=== PATIENT | female | born 1935 | race Caucasian/White ===

== ENCOUNTER 2017-01-26 11:56 | Inpatient (IN) | payer MEDICARE ==
[~2017-01-26] VITALS: Ht 167.6 cm; Wt 53.8 kg
--- NOTE | ~2017-01-26 | ECH ---
Transthoracic Echocardiography Report (TTE) Demographics Patient Name MICHELLE SANTOS Date of Study 01/27/2017 Patient Number [id number] Visit Number [id number] Date of 1935 Room Number 314 Accession Number [id number] Gender Female Age 81 year(s) Referring Zhen Lazar Housekeeping Aide Kayleigh Dennison [facility] Physician MD Lance Lazar MD Physician Interpreting Karie Tubbs Chief Information Officer Physician Supervising Ordering Physician Zhen Lazar MD/[employer] Nurse Stress Solo Truck Driver Conclusions Contractility Score Summary Normal Left Ventricular contractility was noted. Summary Technically good exam. The estimated left ventricular ejection fraction is 45%. Normal right ventricle structure with decreased function. The left atrium is severely dilated by LA volume index measurement. Moderate mitral regurgitation by color Doppler. There is mild aortic stenosis by the Continuity Equation. The peak velocity is 2.6 m/s, the mean gradient is 13 mmHg, and the valve area based on the continuity equation is 1.4 cm2, stroke volume index is 36 ml/m2. Peak velocity obtained in apical view. There is mild aortic regurgitation by color Doppler. Moderate tricuspid regurgitation by color Doppler. There is mild pulmonary hypertension. The pulmonary pressure (RVSP) is 37 mmHg. Recommendation The patient will be given the results of this study by the physician who ordered the exam. Procedure Type of Study TTE procedure:Echo Complete SF. Procedure Date Date: 01/27/2017 Start: 10:26 AM Technical Quality: Good visualization Indications:Atrial fibrillation and Congestive heart failure. Appropriate Use Criteria: 9 Height: 66 inches Weight: 121 pounds BSA: 1.62 m Rhythm: NSR HR: 73 bpm BP: 78/58 mmHg M-Mode/2D Measurements LV Diastolic Dimension: 4.74 cm LV Systolic Dimension: 3.6 cm LV Septum Diastolic: 0.76 cm LV PW Diastolic: 0.76 cm AO Root Dimension: 2.35 cm Cardiac Output: 4.24 l/min LA Dimension: 3.88 cm Cardiac Index: 2.62 l/min*m RV Diastolic Dimension: 3.41 cm LA volume index: 56 ml/m LVOT: 2.04 cm LVOT VTI: 17.8 cm RV Base: 3.5 cm LV Stroke volume: 58.15 ml RV Mid: 2.2 cm LV Stroke volume index: 35.9 ml/m TAPSE: 0.9 cm TDI-S': 8 cm/s Doppler Measurements AV Peak Velocity: 2.6 m/s MV Peak E-Wave: 1.33 m/s AV Peak Gradient: 27.04 mmHg AV Mean Gradient: 13.04 mmHg MV P1/2t: 71.4 msec LVOT Peak Velocity: 0.77 m/s AV Area (Continuity):1.37 cm AV P1/2t: 569.3 msec MV Area (PHT): 3.08 cm TR Velocity:2.92 m/s PV Peak Velocity: 0.66 m/s TR Gradient:34.11 mmHg PV Peak Gradient: 1.72 mmHg Estimated RAP:3 mmHg Estimated PASP: 37.11 mmHg Estimated RVSP: 37 mmHg E' Septal Velocity: 0.12 m/s E' Lateral Velocity: 0.1 m/s RA Area: 14.95 cm Findings Left Ventricle The left ventricle is normal in size . Diastolic function indeterminate due to patient's arrhythmia. Right Ventricle Normal right ventricle structure with decreased function. Left Atrium The left atrium is severely dilated by LA volume index measurement. Right Atrium Normal right atrial size. Mitral Valve Normal mitral valve structure and function. Moderate mitral regurgitation by color Doppler. Aortic Valve There is mild aortic stenosis by the Continuity Equation. The peak velocity is 2.6 m/s, the mean gradient is 13 mmHg, and the valve area based on the continuity equation is 1.4 cm2, stroke volume index is 36 ml/m2. Peak velocity obtained in apical view. There is mild aortic regurgitation by color Doppler. Tricuspid Valve Normal tricuspid valve structure and function. Moderate tricuspid regurgitation by color Doppler. There is mild pulmonary hypertension. The pulmonary pressure (RVSP) is 37 mmHg. Pulmonic Valve Normal pulmonic valve structure and function. Trivial pulmonic valve regurgitation by color Doppler. Pericardial Effusion No evidence of pericardial effusion. Miscellaneous Visualized portions of the aortic root and ascending aorta appear normal in size. Pleural Effusion No evidence of pleural effusion. Contractility Score LV regional wall motion:(0-Non visualized 1-Normal 2-Hypokinesis 3-Akinesis 4-Dyskinesis 5-Aneurysm) Signature
--- NOTE | ~2017-01-26 | DS ---
ADMIT: 01/26/2017 RM/LOC: [facility] MR#: [id number] [address] [place], [place] [address] MICHELLE SANTOS [address] [place] [address] General Discharge Summary SEX: F AGE: 81 : 1935 ADMISSION DATE: 01/26/2017 DISCHARGE DATE: 02/02/2017 SERVICE: Neurosurgery. REASON FOR ADMISSION: 1. Fall. 2. Left-sided subdural hematoma. 3. Metabolic disturbances. 4. Renal insufficiency. 5. Atrial fibrillation with rapid ventricular response. CONSULTS: 1. Dr. Prieto with Nephrology. 2. Dr. Fontaine with Cardiology. 3. Dr. Nelson with [facility]. PROCEDURE: IVC filter placement. HOSPITAL COURSE: Ms. Santos is a very pleasant, 81-year-old female with a known history of dementia. She is from [place], [place] and is here visiting with family. This morning, she was found by her family after she had fallen. They do live in [place]. There was a question of whether she had decreased mental status and some right-sided weakness. An EMS was called and she was taken to the [facility] emergency room for evaluation. A CT scan of her head was obtained and revealed a left-sided subdural hematoma and she was transferred to [facility] for neurosurgical care and higher level of care. She also had edema and erythema to her lower extremity. She was being treated for cellulitis for this and was on doxycycline. She was admitted to the intensive care unit for close monitoring and care. Nephrology was consulted for her elevated BUN and creatinine. [facility] was consulted for co-management of her comorbidities. She was evaluated by Speech Therapy and Physical Therapy and tolerated this well. She went into atrial fibrillation with a rapid ventricular response and Cardiology was consulted. An ultrasound of her right lower leg was obtained and was positive for DVT. Hospital day #2, she was awake and alert. She was pleasantly confused. Her vital signs were stable, she was moving all extremities x4. An IVC filter was placed and she tolerated this well. She continued to work with Physical Therapy and Occupational Therapy. Hospital day #3, Cardiology was adjusting her medications for her atrial fibrillation. She was awake and alert but confused, she was afebrile and vital signs were stable and she was moving all extremities x4. She denied headaches. Her renal insufficiency was stable. Hospital day #4, she was transferred out of the intensive care unit to the Med/Surg status. She continued to work with Physical Therapy, Occupational Therapy, and Speech Therapy. She was alert but forgetful. She would follow commands. Social Work was working on placement. Hospital day #5, she was alert, she would follow commands, and was moving all extremities. She refused therapy but was neurologically stable. Hospital day #6, she was awake and alert but confused. She was afebrile and her vital ADMIT: 01/26/2017 RM/LOC: [facility] MR#: [id number] [address] [place] [id number] MICHELLE SANTOS [address] [place] [address] General Discharge Summary SEX: F AGE: 81 : 1935 signs were stable, she was moving all extremities x4. She denied headaches. Social Work continued to work on discharge placement. Hospital day #7, she remained neurologically stable. She remained awake and alert and disoriented. She was moving all extremities x4, her vital signs were stable. Hospital day #8, she was awake and alert. She was afebrile and her heart rate did drop to 39, she did complain of some nausea, and her Lopressor was discontinued and her digoxin held. She was moving all extremities x4. She was ambulating, defecating, and urinating per her norm and was discharged home. DISCHARGE CONDITION: Good. MEDICATIONS: 1. Colace 100 mg p.o. b.i.d. 2. Lanoxin 0.0625 mg p.o. daily. 3. Lipitor 10 mg daily. 4. Milk of magnesia 10 mL daily p.r.n. 5. Paxil 20 mg daily. 6. Pepcid 20 mg b.i.d. 7. Senokot one tab b.i.d. 8. Vibramycin 100 mg b.i.d. x2 more days, then discontinue. 9. Hydrocodone 5/325, one p.o. q.8 hours p.r.n. 10.Tylenol 650 mg p.o. q.4 hours p.r.n. 11.Dulcolax suppository 10 mg daily p.r.n. 12.Zofran 4 mg p.o. q.4 hours p.r.n. DISCHARGE INSTRUCTIONS: Per Dr. Lucas: She can have a diet per Speech Therapy recommendations. She is a fall risk and should utilize fall precautions. She is to continue with physical therapy and occupational therapy and speech therapy. She will call with any questions or concerns including neurological worsening, signs or symptoms of infection, or any other issues. FOLLOWUP: She will follow up with Dr. Lucas in clinic in 1 month. She will follow up with Dr. Minor on February 15 at 1:30 p.m. DISPOSITION: She was discharged home with family. Total [id number] time for the discharge planning, care coordination was 30 minutes. Gretel Costa APRN / Jone Lucas MD / may JOB #: [id number] CC: Jone Lucas MD, Attending Physician Juan Minor MD, Family Physician
--- NOTE | 2017-01-28 09:16 | HP ---
ADMIT: 01/26/2017 RM/LOC: 314 [facility] MR#: [id number] [address] [facility] [address] [place], [place] [address] MICHELLE SANTOS [address] [place] [address] History and Physical SEX: F AGE: 81 : 1935 DATE OF SERVICE: REASON FOR ADMISSION: Intracranial hemorrhage. HISTORY OF PRESENT ILLNESS: Ms. Santos is a very pleasant woman here visiting with family from [place]. She had a fall few days ago. She has been a little bit forgetful as well. She was brought into the ER today with some confusion and was found to have some metabolic disturbances as well as a small subdural hematoma, and a request for transfer was made. PAST MEDICAL HISTORY: Some type of rash and possible infection in the right leg. Multiple areas of ecchymosis from possible falls. Other medical history is not really known. SOCIAL HISTORY: She does not smoke or utilize drugs of abuse. FAMILY HISTORY: Unknown, and she is not a great historian to be able to get that history from. HOME MEDICATIONS: 1. [place]. 2. [place]. 3. Lipitor. 4. Paxil. 5. Doxycycline. 6. Furosemide. PHYSICAL EXAMINATION: VITAL SIGNS: 96 beats, 96% on room air, 116/77, 12 respirations. GENERAL: She is an otherwise age appropriate appearing 81-year-old woman. HEENT: No scleral icterus. Clear oropharynx. CHEST: Normal respiratory excursion. ABDOMEN: Nontender. EXTREMITIES: Multiple areas of aged ecchymoses. NEUROLOGICAL EXAMINATION: MENTAL STATUS: She is awake and pleasantly alert, although confused. She does ultimately get the right year after multiple wrong attempts. She does not know where she is at. CRANIAL NERVES: Cranial nerves II through XII are individually tested and found to be intact without deficit. MOTOR: Motor exam appears to reveal 5/5 strength release. No localizable neurological deficits. DEEP TENDON REFLEXES: Are 2/4 in the upper and lower extremities. ADMIT: 01/26/2017 RM/LOC: 314 [facility] MR#: [id number] [address] [address] MICHELLE SANTOS [address] [place] [address] History and Physical SEX: F AGE: 81 : 1935 SENSATION: Intact to light touch in upper and lower extremities. CEREBELLAR: Not tested as she does not follow commands that well. GAIT: Not testable. ASSESSMENT AND PLAN: Ms. Santos is a very pleasant woman with a small left-sided subdural hematoma. I do not think this is going to end up being operative. She has had some renal insufficiency of some unknown nature, I do not know if this is chronic or acute, we will have Nephrology see her. Will need an Internal Medicine consult for evaluation for medical comorbidities as well. Hopefully, we can get her squared away over the next couple of days and get her back to her family although I am not totally sure that is going to be possible. Jone Lucas MD/ may JOB #: [id number] CC: Jone Lucas, Attending Physician Juan Minor, Family Physician
--- NOTE | 2017-01-30 21:51 | CO ---
ADMIT: 01/26/2017 RM/LOC: 314 [facility] MR#: [id number] [address] [place], [place] [address] MICHELLE SANTOS [address] [facility] [address] Consultation SEX: F AGE: 81 : 1935 Addendum: 01/28/2017 0540 djs DATE OF CONSULTATION: 01/27/2017 ATTENDING PHYSICIAN: Jone Lucas CONSULTING PHYSICIAN: Kelsey Nelson MD CHIEF COMPLAINT: Comorbid medical conditions. HISTORY OF PRESENT ILLNESS: Michelle Santos is an 81-year-old white female with obvious dementia, who had fallen that sounds like a few times in the last few days. She then started behaving oddly. She was taken to the emergency room where she was noted to have a subdural hematoma. She was subsequently transferred to [facility] for neurosurgical care. She denies complaints at this time regarding her subdural. She does have right shoulder discomfort. She is a very poor historian. There are no medical records available. She is currently hypotensive, but tolerating it well which makes me believe it probably is chronic. She also has atrial fibrillation with rapid ventricular response noted. Again asymptomatic. PAST MEDICAL HISTORY: Obtained from her medical record we have here include: 1. Cellulitis of the right lower extremity that has been treated with doxycycline as an outpatient. 2. Atrial fibrillation with rapid ventricular response - unknown onset date. 3. Subdural hematoma. 4. Dementia. 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 6. Renal insufficiency. 7. Hypomagnesium. 8. Hypokalemia. 9. Anemia. 10.History of CVA in 2002. 11.Ovarian cancer, status post radiation therapy with resulting complications involving her colon. 12.Breast cancer history. [employer] JOB #[id number]: MEDICATIONS: 1. Colace 100 mg daily. 2. [place] 5/325 every eight p.r.n. 3. Potassium 10 mEq daily. 4. Lipitor 20 daily. 5. Paxil 20 mg 1/2 daily. 6. Doxycycline 100 b.i.d. 7. Lasix 40 mg daily. 8. Prevacid 30 mg daily. ADMIT: 01/26/2017 RM/LOC: 314 [facility] MR#: [id number] [address] [facility] [address] [place], [place] [address] MICHELLE SANTOS [address] [place] [address] Consultation SEX: F AGE: 81 : 1935 ALLERGIES: NONE AVAILABLE. SOCIAL HISTORY: Nonsmoker, occasional alcohol. Retired from [employer] and [employer]. FAMILY HISTORY: Unable to recall. REVIEW OF SYSTEMS: Right shoulder pain. No shortness of breath at this time. PHYSICAL EXAMINATION: VITAL SIGNS: Blood pressure 92/57, pulse 97, temp 95, respirations 14. GENERAL: This is a thin white female, who is in no distress. SKIN: Warm and dry. There is some bruising in the right chest area. Right leg is a little erythematous and slightly warm to the touch on the right dorsum of the foot with clear evidence of cellulitis that is starting to improve. It looks as though there was some previous edema that has improved. Right leg is 3+ edema, left is 1+. HEENT: Poor dentition. Mucous membranes are dry. NECK: Supple. LUNGS: Clear. CARDIOVASCULAR: Irregularly irregular and tachycardic. ABDOMEN: Soft. /RECTAL: Deferred. EXTREMITIES: With edema as above with the right 3+, left 1+. LABORATORY AND X-RAY DATA: Potassium 3.5, BUN and creatinine 48/2.8, magnesium 1. IMPRESSION: 1. Subdural hematoma. 2. Atrial fibrillation with rapid ventricular response. 3. Hypotension. 4. Hypokalemia. 5. Hypomagnesemia. 6. Cellulitis, right leg. 7. Lower extremity edema. 8. Renal insufficiency. DISCUSSION: Not sure what her renal function is. We do not know baseline. We will gently hydrate. We will also try and slow her heart rate down. Need to get some old records. PLAN: See chart. ADMIT: 01/26/2017 RM/LOC: 314 [facility] MR#: [id number] [address] [address] MICHELLE SANTOS [address] [place] [address] Consultation SEX: F AGE: 81 : 1935 Kelsey Nelson MD/ may JOB #: [id number] CC: Jone Lucas, Attending Physician Juan Minor, Family Physician MD Juan Kapadia MD Amarinder Garcha, MD Bernard Ormsby, MD [facility] . [facility] Addendum: 01/28/2017 0540 je
--- NOTE | 2017-01-31 07:42 | CO ---
ADMIT: 01/26/2017 RM/LOC: 314 [facility] MR#: [id number] [address] [place], [place] [address] MICHELLE SANTOS [address] [place] [address] Consultation SEX: F AGE: 81 : 1935 Corrected: 01/27/2017 0930 karens ATTENDING PHYSICIAN: Jone Lucas CONSULTING PHYSICIAN: Stephanie Prieto MD REASON FOR CONSULTATION: Renal insufficiency. HISTORY OF PRESENT ILLNESS: Ms. Santos is a very nice 81-year-old, who has a history of dementia, who was transferred here from [place] after having an apparent fall. She was found by her family members on the floor. She was further evaluated in the emergency room there and was found to have a white count of 7.9, hemoglobin 11.3, platelet count 124,000, blood sugar 109. UA was negative. Sodium of 139, potassium 2.9, BUN and creatinine of 47 and 2.9, CO2 of 18.9. UA was negative. Chest x-ray showed chronic bronchial thickening, prominent heart. CT of her cervical spine showed multiple degenerative disease at multiple levels. CT of brain showed a 6 mm subdural hematoma, old occipital pole infarct. EKG showed atrial fib. She was transferred to [facility] for Neurosurgery evaluation. We were asked to see to follow from Nephrology standpoint for elevated creatinine. She is unable to give a history. SOCIAL HISTORY: She has recently moved from [place]. FAMILY HISTORY: Noncontributory, unable to find. PAST MEDICAL HISTORY: Unable to access if she has any evidence of what her prior kidney function was. PHYSICAL EXAM: VITAL SIGNS: Her blood pressure after receiving a dose of Lopressor was 81/60. GENERAL: She is alert, pleasant, confused; bruising on anterior chest, arms. Urine output 400 mL in the Martin catheter. EXTREMITIES: Right lower extremity is edematous. ASSESSMENT: Admission of an elderly white female with renal insufficiency. We will get further medical records and find out what her baseline creatinine ADMIT: 01/26/2017 RM/LOC: 314 [facility] MR#: [id number] [address] [address] MICHELLE SANTOS [address] [place] [address] Consultation SEX: F AGE: 81 : 1935 is. Hypomagnesium, hypokalemia replaced. Anemia, dementia, atrial fibrillation with rapid ventricular rate; fall with decreased level of consciousness which has improved dramatically. Evidence of a small left subdural hematoma. 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 We will continue to follow closely. Dr. Forman will see her in the morning. We at this time will repeat her BMP, magnesium, and phosphorus as she received potassium and magnesium in [place]. An ultrasound of her kidney, bladder, ureters; reassess labs in the morning, get a urine sodium as well as she has edema of her right lower extremity. We will get an ultrasound to rule out deep venous thrombosis. Stephanie Prieto MD/ may JOB #: [id number] CC: Jone Lucas, Attending Physician Juan Minor, Family Physician Corrected: 01/27/2017 0930 je
--- NOTE | 2017-01-31 14:23 | CO ---
ADMIT: 01/26/2017 RM/LOC: 314 [facility] MR#: [id number] [address] [facility] [address] [place], [place] [id number] MICHELLE SANTOS [address] [place] [address] Consultation SEX: F AGE: 81 : 1935 DATE OF CONSULTATION: 01/26/2017 ATTENDING PHYSICIAN: Jone Lucas CONSULTING PHYSICIAN: Arvind Fontaine MD REASON FOR CONSULT: Atrial fibrillation. HISTORY OF PRESENT ILLNESS: Michelle is an 81-year-old lady with an obvious dementia. She says that she is here visiting family from her home of [place], [place]. She has an underlying dementia and the history is extremely difficult and I do not know how accurate it is. Regardless, she apparently was found by her family early this morning after she had fallen. They live in [place]. There were some question of decreased mental status. The [place] [facility] was called. She was taken to the emergency room. She was in atrial fibrillation when they arrive. She was not overly tachycardic. Further evaluation revealed a small left-sided subdural hematoma and she was transferred here to [place]. This afternoon, she has become somewhat tachycardic. When I asked her, she has no palpitations. She denies shortness of breath, lightheadedness, dizziness, and no chest discomfort. She says she has been told she has an irregular heart rhythm and she thinks that the term atrial fibrillation is recognizable but she is clearly not aware of her significant past medical history. I was asked to see her at the request of Dr. Lucas for her atrial fibrillation and further treatment. MEDICATIONS: Per the medical record, she is on: 1. Orcas 5/325 every 8 hours as needed for pain. 2. Klor-Con 10 mEq daily. 3. Lipitor 20 daily. 4. Paxil 20 daily. 5. Doxycycline 100 two times a day. 6. Lasix 40 every morning. ALLERGIES: THERE ARE NO KNOWN MEDICAL ALLERGIES. PAST MEDICAL HISTORY: She does have a colostomy and there is a mentioned history of prior colon cancer and history of right-sided ischemic CVA. She has known dementia. Otherwise, rest of her past medical history is unknown. SOCIAL HISTORY: Apparently, she has recently moved and is living with family here in the [facility], [place]. She denies smoking or significant alcohol use. She says she is . FAMILY HISTORY: Reviewed and noncontributory. I am not sure if it is even accurate. REVIEW OF SYSTEMS: Unobtainable. She offers no complaints to me this afternoon. ADMIT: 01/26/2017 RM/LOC: 314 [facility] MR#: [id number] [address] [id number] MICHELLE SANTOS [address] [place] [address] Consultation SEX: F AGE: 81 : 1935 PHYSICAL EXAMINATION: VITAL SIGNS: Her blood pressure 78/53, the mean is 62; her pulse is currently 100 after given 5 mg of Lopressor, it was 150 when I arrived to the floor; respirations are 18; she is afebrile. GENERAL: She is frail, elderly-appearing woman. She is not fully oriented. She appears in no acute distress. There is obvious bruising across her thorax. She is also pale. SKIN: Warm. There is decent capillary refill. No rashes. There is bruising noted over arms and her thorax. EYES: Sclerae clear. No xanthelasmas. ENT: Oral mucosa is pink and moist. No jugular venous distention or carotid bruits. HEART: Markedly tachycardic and slightly irregular. There is a soft systolic murmur at the upper sternal borders but I do not think it radiates to the carotids. CHEST: She has [id number] kyphosis. Otherwise, respirations are even and unlabored. Lungs are clear to auscultation. Good respiratory effort. ABDOMEN: There is a colostomy on the left or an ostomy on the left. Nontender. Bowel sounds are active. No masses are appreciated. Otherwise, soft and nontender. EXTREMITIES: There is marked size differential and edema consistent with lymphedema. PSYCH: She is clearly not oriented. She is cooperative. MUSCULOSKELETAL: Positive for kyphosis and changes of osteoarthritis. LABORATORY: From Michelle Rosario: Hemoglobin is 11.3, white count is 7.9, platelet count 124,000. Her BUN is 47 with creatinine of 2.9. AST and ALT were normal. Potassium is 2.9. Cardiac enzymes and TSH were all checked, but I do not have the results. Chest x-ray reported borderline hyperinflation, mild cardiomegaly. CT of the spine showed no fracture. CT of the head showed an old right occipital 2 cm infarct and a small left subdural hematoma. IMPRESSION: 1. Atrial fibrillation with rapid ventricular response. 2. Small left subdural hematoma. 3. Dementia. 4. History of previous ischemic right occipital infarct. 5. Dementia. 6. Recent fall. 7. Colostomy. 8. Elevated creatinine. RECOMMENDATIONS: Unfortunately, I really have minimal information regarding ADMIT: 01/26/2017 RM/LOC: 314 [facility] MR#: [id number] [address] [place] [id number] MICHELLE SANTOS [address] [place] [address] Consultation SEX: F AGE: 81 : 1935 her medical history. I am not clear if this atrial fibrillation has been longstanding or is a new diagnosis for her. With her previous history of stroke and not on anticoagulation, I would have suspected she be on anticoagulation but is not listed on her active medical list. Clearly, we are not going to start anticoagulation at this point, after her fall and subdural hematoma. There is no doubt in my mind she is at significant risk for recurrent falls. We will strive for rate control initially. I will try IV Lopressor and add continuous IV Cardizem if needed to control her heart rate. Further workup reviewing her TSH, we need to review her medical records, we will plan on doing an echo tomorrow to evaluate her LV and valvular function. Arvind Fontaine MD/ may JOB #: [id number] CC: Jone Lucas, Attending Physician Juan Minor, Family Physician
[2017-02-03] MEDS ORDERED: COLACE-DPS100 MG PO (18:00)
[2017-02-03] MEDS ORDERED: LANOXIN62.5 MCG PO (18:01)
[2017-02-03] MEDS ORDERED: LIPITOR DPS10 MG PO (18:01)
[2017-02-03] MEDS ORDERED: PAXIL DPS20 MG PO (18:01)
[2017-02-03] MEDS ORDERED: NORCO 5-325 TA1 EACH PO (18:02)
[2017-02-03] MEDS ORDERED: MILK OF MAGNESI10 ML PO (18:02)
[2017-02-03] MEDS ORDERED: PEPCID DPS20 MG PO (18:02)
[2017-02-03] MEDS ORDERED: VIBRAMYCIN-DPS100 M2 PO (18:02)
[2017-02-03] MEDS ORDERED: ZOFRAN4 MG PO (18:03)
[2017-02-03] MEDS ORDERED: DULCOLAX-DPS10 MG PR (18:03)
[2017-02-03] MEDS ORDERED: SENOKOT DPS8.6 MG PO (18:03)
[2017-02-03] MEDS ORDERED: TYLENOL DPS325 MG PO (18:04)
[2017-02-03] MEDS ORDERED: LIDEX E 0.05%60 GM TP (18:04)
== END 2017-02-02 19:25 | disposition home or self-care (01) | DRG 41 ==
LOC: 3ICU 11:56 → 5MS 01-29 15:03
PROVIDERS: ADMIT Neurological Surgery
PROC: 06H03DZ Insertion of Intraluminal Device into Inferior Vena Cava, Percutaneous Approach (ICD-10-PCS; principal; 2017-01-27)
DX: S06.5X0A Traumatic subdural hemorrhage without loss of consciousness, initial encounter (principal); L03.115 Cellulitis of right lower limb; D61.818 Other pancytopenia; I95.9 Hypotension, unspecified; N18.4 Chronic kidney disease, stage 4 (severe); I82.441 Acute embolism and thrombosis of right tibial vein; N17.9 Acute kidney failure, unspecified; F03.90 Unspecified dementia, unspecified severity, without behavioral disturbance, psychotic disturbance, mood disturbance, and anxiety; W19.XXXA Unspecified fall, initial encounter; I48.91 Unspecified atrial fibrillation; E83.51 Hypocalcemia; E83.42 Hypomagnesemia; M47.812 Spondylosis without myelopathy or radiculopathy, cervical region; E87.6 Hypokalemia; M40.209 Unspecified kyphosis, site unspecified; M19.90 Unspecified osteoarthritis, unspecified site; Z93.3 Colostomy status; Z85.038 Personal history of other malignant neoplasm of large intestine; Z86.73 Personal history of transient ischemic attack (TIA), and cerebral infarction without residual deficits; Z85.43 Personal history of malignant neoplasm of ovary; Z85.3 Personal history of malignant neoplasm of breast